=== PATIENT | female | born 1985 | race Caucasian/White ===

== ENCOUNTER 2019-05-22 13:38 | Emergency (ER) | payer SELFPAY ==
[~2019-05-22] VITALS: Ht 154.9 cm; Wt 48.5 kg
--- NOTE | 2019-05-22 14:09 | NUR ---
PATIENT TO ROOM 8
[2019-05-22] MEDS ORDERED: SODIUM CHLORIDE 0.9% 1000ML 1,000 ML IV STA (14:24)
[2019-05-22 14:41] LABS: BILIRUBIN,URINE NEGATIVE (NEGATIVE); CLARITY,URINE SL CLOUDY (CLEAR); COLOR,URINE YELLOW (YELLOW); KETONES,URINE NEGATIVE (NEGATIVE); LEUKOCYTE ESTERASE ,URINE SMALL (NEGATIVE); NITRITE,URINE NEGATIVE (NEGATIVE); PROTEIN,URINE DIPSTICK 1+ (NEGATIVE); URINE UROBILINOGEN 0.2 mg/dL (0.2 - 1)
[2019-05-22 14:41] LABS: BASOPHILS # (AUTO) 0.1 (0.0-0.1); BASOPHILS % 0.3 % (0.0-1.0); EOSINOPHILS # (AUTO) 0.1 (0.0-0.4); EOSINOPHILS % 0.7 % (0.0-6.0); HEMATOCRIT 37.2 % (34.2-44.1); HEMOGLOBIN 12.4 g/dL (12.0-16.0); LYMPHOCYTES # (AUTO) 1.8 (1.0-3.2); LYMPHOCYTES % 11.3 % (18.0-39.1); MEAN CORPUSCULAR HGB CONC 33.3 g/dL (31-35); MEAN CORPUSCULAR VOLUME 89.9 fL (81-99); MONOCYTES % 6.4 % (4.4-11.3); NEUTROPHILS % 80.9 % (38.7-80.0); PLATELET COUNT 493 x10e3/uL (140-360); RED BLOOD COUNT 4.14 x10e6/uL (3.6-5.1); RED CELL DISTRIBUTION WIDTH 14.2 % (11.7-14.4)
[2019-05-22 14:56] LABS: WBC,URINE (MAN) >50 /HPF (0-5)
[2019-05-22 14:57] LABS: BACTERIA,URINE FEW /HPF; EPITHELIAL CELLS,URINE RARE /LPF
[2019-05-22] MEDS ORDERED: ONDANSETRON HCL INJ 2MG/ML 2ML 2 MG/ML VIAL IV ONE (15:00)
[2019-05-22] MEDS ORDERED: MORPHINE SULFATE 2 MG/ML SYR 1ML IV ONE (15:00)
[2019-05-22 15:03] LABS: ALANINE AMINOTRANSFERASE 9 IU/L (0-55); ALBUMIN 3.4 g/dL (3.5-5.0); ALBUMIN/GLOBULIN RATIO 0.9 (0.8-2.0); ALKALINE PHOSPHATASE 78 IU/L (40-150); AMYLASE 32 U/L (25-125); ANION GAP 14.6 mmol/L (8-16); BLOOD UREA NITROGEN 13 mg/dL (7-26); BUN/CREATININE RATIO 20 (6-25); CARBON DIOXIDE 28 mmol/L (22-29); CHLORIDE 101 mmol/L (98-107); CREATININE, SERUM 0.65 mg/dL (0.57-1.11); EST GLOMERULAR FILTRATION RATE > 60 ML/MIN (60-); GLUCOSE 96 mg/dL (74-118); LIPASE 6 U/L (8-78); POTASSIUM 3.6 mmol/L (3.5-5.1); SODIUM 140 mmol/L (136-145)
[2019-05-22] MEDS ORDERED: CEFTRIAXONE SOD 1 GM VIAL IV ONE (15:30)
--- NOTE | 2019-05-22 15:54 | Diagnostic Imaging Report ---
EXAM: CT of the abdomen and pelvis WITHOUT contrast HISTORY: Right flank pain, urine test negative, history of appendectomy. COMPARISON: None available. TECHNIQUE: The abdomen and pelvis were scanned utilizing a multidetector helical scanner. Coronal and sagittal reformats are available. PROTOCOL: Renal colic IV CONTRAST: None, which limits sensitivity and specificity of evaluation of the soft tissues and vascular structures. ORAL CONTRAST: None, which limits sensitivity and specificity of evaluation of the bowel. RADIATION DOSE: Total DLP: 170.52 mGy*cm Estimated effective dose: (DLP x 0.015 x size factor) Dose modulation, iterative reconstruction, and/or weight based adjustment of the mA/kV was utilized to reduce the radiation dose to as low as reasonably achievable. COMPLICATIONS: None FINDINGS: LOWER THORAX: Unremarkable. HEPATOBILIARY: No definite focal hepatic lesions. No biliary ductal dilatation. Punctate calcific densities within the gallbladder. SPLEEN: No splenomegaly. PANCREAS: No focal masses or ductal dilatation. ADRENALS: No adrenal nodule. KIDNEYS/URETERS: No hydronephrosis, stones, or solid mass lesion identified. PELVIC ORGANS/BLADDER: The uterine bladder is partially decompressed, which limits evaluation. The uterus is mildly retroflexed. An approximately 5 cm in diameter ill-defined hypodensity at the posterior right pelvis with mild adjacent nonspecific fat stranding. This is difficult to further assess in the absence of intravenous contrast. PERITONEUM / RETROPERITONEUM: No free air or definitive fluid. GI TRACT: On limited evaluation of the gastrointestinal tract, no dilation or wall thickening identified. Postsurgical changes compatible with prior appendectomy. LYMPH NODES: No pathologically enlarged lymph nodes. VESSELS: Minimal scattered scattered atherosclerotic vascular calcifications. BONES and JOINTS: No aggressive osseous lesion or acute fracture. SOFT TISSUES: Unremarkable. IMPRESSION: 1. Approximate 5 cm right posterior pelvic hypodensity, a primary consideration is an ovarian cystic lesion. Recommend a transabdominal and transpelvic pelvic ultrasound with supplemental color Doppler evaluation for further evaluation. 2. Cholelithiasis without evidence of acute cholecystitis. Signed by: Dr. Tru Singh D.O., M.M.M. on 05/22/2019 3:51 PM
[2019-05-22] MEDS ORDERED: CEFTRIAXONE SOD 1 GM/NS 50 ML 50 ML IV ONE (16:00)
--- NOTE | 2019-05-22 16:02 | NUR ---
SPOKE WITH [facility] IN RADIOLOGY. SHE IS CALLING OUT TECH FOR PELVIC ULTRASOUND
--- NOTE | 2019-05-22 16:15 | NUR ---
PATIENT AND FAMILY UPDATED ON PLAN OF CARE
--- NOTE | 2019-05-22 17:05 | NUR ---
[facility] ROOM CUSTODIAN AT BEDSIDE
--- NOTE | 2019-05-22 17:46 | Diagnostic Imaging Report ---
TECHNIQUE: Transabdominal and transvaginal ultrasound imaging of the pelvis was performed, transvaginal images were medically necessary to further assess the adnexa. Color Doppler evaluation was utilized to supplement the evaluation. HISTORY: Pain COMPARISON: CT of the pelvis May 22, 2019. DISCUSSION: UTERUS: The uterus measures 8.9 cm x 4.4 cm x 5.9 cm. The endometrial echocomplex measures 0.2 cm. OVARIES/ADNEXA: The right ovary is not visible, per the technologist performing the exam regional bowel gas obscures this area. The left ovary measures 3.4 cm x 2.1 cm x 2.1 cm. PELVIS: No free fluid. IMPRESSION: 1. The right ovary is not visible to further characterize the CT findings from earlier the same date. 2. A follow-up MRI of the pelvis with and without contrast is recommended to further characterize the right ovary and suspected cyst. Signed by: Dr. Tru Singh D.O., M.M.M. on 05/22/2019 5:43 PM
== END 2019-05-22 18:08 | disposition home or self-care (01) ==
LOC: EDBD 13:38 → ER 13:38
DX: R10.31 Right lower quadrant pain (principal); N83.201 Unspecified ovarian cyst, right side; N39.0 Urinary tract infection, site not specified
CPT/HCPCS: 36415; 74176; 76856; 80053; 81001; 81025; 82150; 83690; 85025; 99284; J0696; J2270; J2405; J7030